=== PATIENT | male | born 1950 | race Caucasian/White ===

== ENCOUNTER 2019-01-01 18:40 | Emergency (ER) | payer MEDICARE, BC ==
--- NOTE | 2019-01-01 19:03 | EDM.PDOC ---
ED HPI GENERAL MEDICAL PROBLEM - General Chief Complaint: Flank Pain Stated Complaint: RIGHT SIDE AND BACK PAIN Time Seen by Provider: 01/01/19 19:01 Source of Information: Reports: Patient, Family (spouse) History Limitations: Reports: No Limitations - History of Present Illness INITIAL COMMENTS - FREE TEXT/NARRATIVE: 68-year-old male presents to the ED with a history of recurrent nausea and vomiting starting about 0200 hrs. this morning and then associated loose watery diarrhea. Intermittent fever and chills. About 3:00 this afternoon he developed sudden onset of severe right flank pain that radiates down towards the right groin. Patient has a history of renal lithiasis with at least 5 previous attacks. Lengthy period of time since he had his last kidney stone. Has not no cine blood in his urine states he hasn't really voided much at all today. Has not been able to keep anything down. Doesn't think that he came in contact with any bad food. No blood in either the emesis or the diarrhea stool. Diarrhea stools X4 of small volume. He does feel lightheaded and dizzy when standing. Onset: Today Onset Date: 01/01/19 Onset Time: 02:00 Duration: Hour(s): Location: Reports: Abdomen, Back (Current nausea vomiting and loose watery diarrhea. QT right flank pain starting bones 1500 hrs. today rating around the right lower abdomen towards the groin.) Quality: Reports: Ache, Other (Pain in the right flank is constant with intermittent colicky component. He has pain feeling across his entire lower abdomen.) Severity: Severe Improves with: Reports: None (910) Worsens with: Reports: None. Denies: Other Context: Denies: Activity, Exercise, Lifting, Sick Contact, Trauma, Other Associated Symptoms: Reports: Loss of Appetite, Malaise (Loose watery diarrhea) , Nausea/Vomiting, Other. Denies: Chest Pain, Cough, cough w sputum, Shortness of Breath, Syncope Treatments CLINICAL TRIAL COORDINATOR: Reports: Other (see below) (Nothing will stay down) Right Pain Score (Numeric/FACES): 9 - Related Data Allergies Allergy/AdvReac Type Severity Reaction Status Date / Time atorvastatin calcium Allergy Cannot Verified 01/01/19 18:56 [From Lipitor] Remember Penicillins Allergy Cannot Verified 01/01/19 18:56 Remember Home Meds: Home Meds Ondansetron [Zofran] 4 mg BUCCAL Q6H PRN #5 tab 01/01/19 [Rx] Simvastatin 10 mg PO DAILY 01/01/19 [History] amLODIPine Besylate [Amlodipine Besylate] 5 mg PO DAILY 01/01/19 [History] oxyCODONE HCl/Acetaminophen [Percocet 5-325 mg Tablet] 1 - 2 each PO Q4H PRN # 20 tablet 01/01/19 [Rx] Past Medical History HEENT History: Reports: Impaired Vision Cardiovascular History: Reports: High Cholesterol, Hypertension Genitourinary History: Reports: BPH, Renal Calculus (On multiple occasions he estimates 5 previous attacks of renal colic. No requirement for lithotripsy.) Hematologic History: Reports: Other (See Below) (Patient has polycythemia rubra vera and has phlebotomy done about once monthly. Just had it done last week.) - Past Surgical History GI Surgical History: Reports: Hernia, Inguinal (Bilateral inguinal hernia raphe) Social & Family History - Tobacco Use Smoking Status *Q: Never Smoker - Caffeine Use Caffeine Use: Reports: Soda - Recreational Drug Use Recreational Drug Use: No - Living Situation & Occupation Living situation: Reports: Occupation: Employed ED ROS GENERAL - Review of Systems Review Of Systems: See Below Constitutional: Reports: Fever, Chills, Malaise, Weakness, Fatigue, Decreased Appetite HEENT: Reports: Other Respiratory: Reports: No Symptoms (Dry mouth) Cardiovascular: Reports: Blood Pressure Problem Endocrine: Reports: No Symptoms GI/Abdominal: Reports: Abdominal Pain, Diarrhea, Nausea (This large-volume watery yellow diarrhea starting up until about 0300 hrs. this morning.), Vomiting (Starting about 0200 hrs. this morning.) : Reports: No Symptoms, Flank Pain (Right side), Other Musculoskeletal: Reports: Back Pain Skin: Reports: No Symptoms Neurological: Reports: No Symptoms Psychiatric: Reports: No Symptoms Hematologic/Lymphatic: Reports: No Symptoms Immunologic: Reports: No Symptoms ED EXAM, GI/ABD - Physical Exam Exam: See Below Exam Limited By: No Limitations General Appearance: Alert, WD/WN, No Apparent Distress Eyes: Bilateral: Normal Appearance (No scleral icterus.) Throat/Mouth: Other Head: Atraumatic, Normocephalic (Tongue is very dry and coated.) Neck: Normal Inspection, Supple, Non-Tender, Full Range of Motion Respiratory/Chest: No Respiratory Distress, Lungs Clear, Normal Breath Sounds, No Accessory Muscle Use Cardiovascular: Normal Peripheral Pulses, Regular Rate, Rhythm, No Edema, No Gallop, No Murmur, No Rub GI/Abdominal Exam: No Abnormal Bruit, No Mass, Pelvis Stable, Distended (I'll sounds are fairly quiet sent and all 4 quadrants. The abdomen is distended firm to palpation. Minimal tympany.), Abnormal Bowel Sounds, Other (Abdominal girth limits ability to elicit a palpate any solid organs.) (Male) Exam: Other (Surgical scars both lower inguinal areas compatible with hernia raphe's) Back Exam: Normal Inspection, Full Range of Motion. No: CVA Tenderness (L), CVA Tenderness (R) Extremities: Normal Inspection, Normal Range of Motion, Non-Tender, No Pedal Edema Neurological: Alert, Oriented, CN II-XII Intact, Normal Cognition, Normal Gait Psychiatric: Normal Affect, Normal Mood Skin Exam: Warm, Dry, Intact, Normal Color, No Rash Course - Vital Signs Last Recorded V/S: Last Vital Signs Temp 36.3 C 01/01/19 18:54 Pulse 81 01/01/19 18:54 Resp 18 01/01/19 18:54 BP 147/90 H 01/01/19 18:54 Pulse Ox 94 L 01/01/19 18:54 - Orders/Labs/Meds Orders: Active Orders 24 hr Category Date Time Status Sodium Chloride 0.9% [Normal Saline] 1,000 ml Med 01/01/19 19:15 Active IV ASDIRECTED Medication Orders Sodium Chloride (Normal Saline) 1,000 mls @ 500 mls/hr IV ASDIRECTED MISAEL Last Admin: 01/01/19 19:29 Dose: 500 mls/hr Labs: Laboratory Tests 01/01/19 01/01/19 01/01/19 Range/Units 19:25 19:25 19:25 WBC 13.80 H (4.23-9.07) K/mm3 RBC 6.64 H (4.63-6.08) M/mm3 Hgb 16.0 (13.7-17.5) gm/L Hct 50.6 (40.1-51.0) % MCV 76.2 L (79.0-92.2) fl MCH 24.1 L (25.7-32.2) pg MCHC 31.6 L (32.2-35.5) g/dl RDW Std Deviation 51.0 H (35.1-43.9) fL Plt Count 257 (163-337) K/mm3 MPV 10.6 (9.4-12.3) fl Neutrophils % (Manual) 80 H (40-60) % Band Neutrophils % 1 (0-10) % Lymphocytes % (Manual) 13 L (20-40) % Atypical Lymphs % 0 % Monocytes % (Manual) 5 (2-10) % Eosinophils % (Manual) 1 (0.8-7.0) % Basophils % (Manual) 0 L (0.2-1.2) Platelet Estimate Adequate Polychromasia Few Anisocytosis 1+ slight Microcytosis 1+ slight Sodium 140 (136-145) mEq/L Potassium 3.7 (3.5-5.1) mEq/L Chloride 103 (98-107) mEq/L Carbon Dioxide 23 (21-32) mEq/L Anion Gap 17.7 H (5-15) BUN 22 H (7-18) mg/dL Creatinine 1.0 (0.7-1.3) mg/dL Est Cr Clr Drug Dosing 72.66 mL/min Estimated GFR (MDRD) > 60 (>60) mL/min BUN/Creatinine Ratio 22.0 H (14-18) Glucose 157 H (80-115) mg/dL Lactic Acid 1.9 (0.4-2.0) mmol/L Calcium 9.3 (8.5-10.1) mg/dL Magnesium 2.0 (1.8-2.4) mg/dl Total Bilirubin 1.1 H (0.2-1.0) mg/dL AST 28 (15-37) U/L ALT 52 (16-63) U/L Alkaline Phosphatase 124 H (46-116) U/L C-Reactive Protein 0.7 (<1.0) mg/dL Total Protein 9.0 H (6.4-8.2) g/dl Albumin 4.0 (3.4-5.0) g/dl Globulin 5.0 gm/dL Albumin/Globulin Ratio 0.8 L (1-2) Lipase 94 (73-393) U/L Urine Color (Yellow) Urine Appearance (Clear) Urine pH (5.0-8.0) Ur Specific [place] (1.005-1.030) Urine Protein (Negative) Urine Glucose (UA) (Negative) Urine Ketones (Negative) Urine Occult Blood (Negative) Urine Nitrite (Negative) Urine Bilirubin (Negative) Urine Urobilinogen (0.2-1.0) Ur Leukocyte Esterase (Negative) Urine RBC (0-5) /hpf Urine WBC (0-5) /hpf Ur Epithelial Cells (0-5) /hpf Urine Bacteria (FEW) /hpf Urine Mucus (FEW) /hpf Ketones (0.0-0.3) mM 01/01/19 01/01/19 Range/Units 19:25 21:23 WBC (4.23-9.07) K/mm3 RBC (4.63-6.08) M/mm3 Hgb (13.7-17.5) gm/L Hct (40.1-51.0) % MCV (79.0-92.2) fl MCH (25.7-32.2) pg MCHC (32.2-35.5) g/dl RDW Std Deviation (35.1-43.9) fL Plt Count (163-337) K/mm3 MPV (9.4-12.3) fl Neutrophils % (Manual) (40-60) % Band Neutrophils % (0-10) % Lymphocytes % (Manual) (20-40) % Atypical Lymphs % % Monocytes % (Manual) (2-10) % Eosinophils % (Manual) (0.8-7.0) % Basophils % (Manual) (0.2-1.2) Platelet Estimate Polychromasia Anisocytosis Microcytosis Sodium (136-145) mEq/L Potassium (3.5-5.1) mEq/L Chloride (98-107) mEq/L Carbon Dioxide (21-32) mEq/L Anion Gap (5-15) BUN (7-18) mg/dL Creatinine (0.7-1.3) mg/dL Est Cr Clr Drug Dosing mL/min Estimated GFR (MDRD) (>60) mL/min BUN/Creatinine Ratio (14-18) Glucose (80-115) mg/dL Lactic Acid (0.4-2.0) mmol/L Calcium (8.5-10.1) mg/dL Magnesium (1.8-2.4) mg/dl Total Bilirubin (0.2-1.0) mg/dL AST (15-37) U/L ALT (16-63) U/L Alkaline Phosphatase (46-116) U/L C-Reactive Protein (<1.0) mg/dL Total Protein (6.4-8.2) g/dl Albumin (3.4-5.0) g/dl Globulin gm/dL Albumin/Globulin Ratio (1-2) Lipase (73-393) U/L Urine Color Mandy H (Yellow) Urine Appearance Slt cloudy H (Clear) Urine pH 5.5 (5.0-8.0) Ur Specific [place] > or = 1.030 (1.005-1.030) Urine Protein 2+ H (Negative) Urine Glucose (UA) Negative (Negative) Urine Ketones 2+ H (Negative) Urine Occult Blood 3+ H (Negative) Urine Nitrite Negative (Negative) Urine Bilirubin 1+ H (Negative) Urine Urobilinogen 0.2 (0.2-1.0) Ur Leukocyte Esterase Negative (Negative) Urine RBC >100 H (0-5) /hpf Urine WBC 0-5 (0-5) /hpf Ur Epithelial Cells 0-5 (0-5) /hpf Urine Bacteria Moderate H (FEW) /hpf Urine Mucus Moderate H (FEW) /hpf Ketones 0.55 (0.0-0.3) mM Meds: Medications Generic Name Dose Route Start Last Admin Trade Name Freq PRN Reason Stop Dose Admin Sodium Chloride 1,000 mls @ 500 mls/hr 01/01/19 19:15 01/01/19 19:29 Normal Saline IV 500 mls/hr ASDIRECTED MISAEL Administration Discontinued Medications Generic Name Dose Route Start Last Admin Trade Name Freq PRN Reason Stop Dose Admin Fentanyl 50 mcg 01/01/19 21:18 01/01/19 21:32 Sublimaze IVPUSH 01/01/19 21:19 50 mcg ONETIME ONE Administration Hydromorphone HCl 1 mg 01/01/19 19:02 01/01/19 19:28 Dilaudid IVPUSH 01/01/19 19:03 1 mg ONETIME ONE Administration Hydromorphone HCl 0.5 mg 01/01/19 20:21 01/01/19 20:33 Dilaudid IVPUSH 01/01/19 20:22 0.5 mg ONETIME ONE Administration Hydromorphone HCl 1 mg 01/01/19 22:12 01/01/19 22:19 Dilaudid IVPUSH 01/01/19 22:13 1 mg ONETIME ONE Administration Metoclopramide HCl 10 mg 01/01/19 19:02 01/01/19 19:27 Reglan IVPUSH 01/01/19 19:03 10 mg ONETIME ONE Administration Ondansetron HCl 4 mg 01/01/19 20:21 01/01/19 20:33 Zofran IVPUSH 01/01/19 20:22 4 mg ONETIME ONE Administration - Radiology Interpretation Free Text/Narrative:: 68-year-old male presents to the ED with 2 problems. He woke around 0200 hrs. this morning with spontaneous nausea vomiting and diarrhea's occur shortly thereafter. States he's had this about every 2 hours all day long. About 1500 hrs. today he developed sudden onset of severe right flank pain which she rates as 9 out of 10. It radiates down towards the right groin. Patient has a history of renal lithiasis with 5 previous attacks of renal colic. He does not have it ever had to have lithotripsy. Diarrhea as loose watery and high-volume . Emesis is more dry heaves at this time. Nothing his stay down all day. He has had minimal fluid output per urethra. - Re-Assessments/Exams Free Text/Narrative Re-Assessment/Exam: 01/01/19 20:00: CT of the abdomen has been completed per renal protocol. Visualized portions of the lower chest reveal increased density within both lung bases with multiple subpleural labs and slight parenchymal density most likely due to his areas of scarring. Fatty infiltration is seen throughout the liver. Spleen is normal small to moderate-sized hiatal hernia appreciated. Adrenal glands show no nodules. Kidneys are moderately atrophic bilaterally and cysts are noted within both kidneys. No abnormal calcifications are seen within the kidneys. Ureters do not show any significant dilatation although there is a 2-3 mm stone in the midportion of the right ureter pancreas is within normal limits. Gallbladder contains no calcified stones. Aorta shows atherosclerotic changes which continues into the iliac vessels. Mild areas of ectasia are seen within the aorta with minimal aneurysmal dilatation at 2.5 cm. 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 Diverticular appreciated throughout the descending and sigmoid colon without active diverticulitis. No free fluid or inflammatory changes are appreciated in the pelvis. Appendix is not visualized. Bone windows show moderate degenerative changes throughout the lumbar spine. 01/01/19 20:20 on recheck the patient still is having moderate pain right flank rated 2 out of 10. Still also mildly nauseated and hanging onto the emesis bag. He did have a small emesis while over in the CT suite. Given Zofran 4 mg IV and repeat Dilaudid 0.5 mg IV. Labs are still pending. 01/01/19 20:32 Chemistry is back. Hematology is pending. Sodium 140 with potassium 3.7. Chloride 103 with a bicarbonate 23. And a gap is elevated at 17.7. BUNs 22 with a creatinine of 1.0. GFR remains greater than 60. Glucose mildly elevated at 157. Lactic acid is 1.9. Calcium is 9.3. Magnesium normal at 2.0. Bilirubin is 1.1. AST is 28 with an ALT of 52. Alk phosphatase is 124. C- reactive protein is 0.7. Lipase is normal at 94. Ketones are elevated at 0.55. 01/01/19 21:06 White count is elevated at 13.80 with 80% neutrophils and 1% bands. Hemoglobin is 16.0 with hematocrit of 50.6 suggesting some degree of hemoconcentration. MCV is slightly low at 76.2 suggesting some degree of iron deficiency. Platelet count is normal at 2 57,000. 01/01/19 21:19 patient still has not voided. Still having significant right lower quadrant abdominal pain the distribution of the kidney stone. We'll try fentanyl 50 g IV. 01/01/19 22:11 Urine dip reveals specific gravity greater than 1.030. 2+ proteinuria negative glucose 2+ ketones and 3+ occult blood. 1+ bilirubin. The micro-shows greater than 100 red blood cells per high-power field negative leukocyte esterase moderate bacteria. Departure - Departure Time of Disposition: 22:22 Disposition: Home, Self-Care 01 Condition: Fair Clinical Impression: Viral gastroenteritis, Renal colic on right side Intractable nausea and vomiting Qualifiers: Vomiting type: unspecified Qualified Code(s): R11.2 - Nausea with vomiting, unspecified - Discharge Information *PRESCRIPTION DRUG MONITORING PROGRAM REVIEWED*: Not Applicable *COPY OF PRESCRIPTION DRUG MONITORING REPORT IN PATIENT SHE: Not Applicable Prescriptions: Ondansetron [Zofran] 4 mg BUCCAL Q6H PRN #5 tab PRN Reason: nausea or vomiting oxyCODONE HCl/Acetaminophen [Percocet 5-325 mg Tablet] 1 - 2 each PO Q4H PRN # 20 tablet PRN Reason: pain relief. Instructions: Viral Gastroenteritis, Adult, Kidney Stones, [id number], Nausea and Vomiting, Adult Referrals: Saadia Jay MD [Primary Care Provider] - Forms: ED Department Discharge Additional Instructions: Evaluation in he emergency room today due to viral gastroenteritis with nausea vomiting and diarrhea since point 0200 hrs. this morning. Compounded by the development of acute right-sided flank pain rating down to the right groin at about [address] of the abdomen confirms a 2.5 mm stone in the mid right ureter. No other stones are identified in the kidney tissues at this time. Stone is small enough that it'll pass likely over the next 2-3 days. Lab work revealed that she were dehydrated and she will given a liter of IV fluids while in the ED. Also medications are given for nausea vomiting and of course pain relief. Treatment at home is Zofran 4 mg under the tongue every 4-6 hours necessary for relief of further nausea or vomiting. Percocet tabs 5/3/25 usually 2 tablets every 4 hours as necessary for relief of renal colic pain until stone passes. Diet to be clear fluids such as Gatorade/Powerade ideally 5- 6 ounces sipped per hour. Advance diet as tolerated over the next 2 days. Suggest no dairy products and no apple juice or grape juice until stools are formed back up. - My Orders Last 24 Hours: My Active Orders 01/01/19 19:15 Sodium Chloride 0.9% [Normal Saline] 1,000 ml IV ASDIRECTED - Assessment/Plan Last 24 Hours: My Active Orders 01/01/19 19:15 Sodium Chloride 0.9% [Normal Saline] 1,000 ml IV ASDIRECTED
[2019-01-01] MEDS: Metoclopramide 10 MG/2 ML SDV IVPUSH ONE (19:27)
[2019-01-01] MEDS: HYDROmorphone 1 MG/ML Syringe IVPUSH ONE ×3 (19:28→22:19)
[2019-01-01] MEDS: Sodium Chloride 0.9% 1,000 ML IV SCH (19:29)
--- NOTE | 2019-01-01 20:12 | CT ---
CT abdomen and pelvis Technique: Multiple axial sections were obtained from above the dome of the diaphragm inferiorly through the pubic symphysis. Intravenous and oral contrast not utilized. Study has been performed as a ureteral stone protocol. Comparison: Previous CT abdomen and pelvis exam of 06/28/12. Findings: Increased density is noted within both lung bases with multiple subpleural blebs and slight parenchymal density most likely due to areas of scarring. These findings are an interval change from previous exam. Fatty infiltration is seen throughout the liver. Spleen appears within normal limits in size. Small hiatal hernia is noted. Adrenal glands show no nodule. Cysts are noted within both kidneys. No abnormal calcifications are seen within the kidneys. Ureters show no dilatation. Small calcification is noted within the mid ureter measuring 3 mm which causes no obstruction at this time. Pancreas is within normal limits. Gallbladder contains no calcified gallstones. Aorta shows atherosclerotic change which continues into the iliac vessels. Mild areas of ectasia are seen within the aorta with minimal aneurysmal dilatation at 2.5 cm. 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 Diverticuli are seen within the descending and sigmoid colon without diverticulitis. No pelvic mass or adenopathy is seen. No free fluid or inflammatory change is seen. Appendix not definitely visualized. Bone window settings were reviewed which appears within normal limits for the patient's age. Impression: 1. Fatty infiltration within the liver. Small hiatal hernia. Cysts within the kidneys. 2. No renal calculi or ureteral dilatation is seen. Small 3 mm calcification within the mid right ureter is seen compatible with ureteral stone which causes no significant obstruction at this time. 3. Other nonacute findings as described above. Diagnostic code #3
[2019-01-01] MEDS: Ondansetron 4 MG/2 ML SDV IVPUSH ONE (20:33)
[2019-01-01] MEDS: fentaNYL 100 MCG/2 ML SDV IVPUSH ONE (21:32)
== END 2019-01-01 22:58 | disposition home or self-care (01) ==
LOC: JD.ED 18:40
DX: A08.4 Viral intestinal infection, unspecified (principal); N23 Unspecified renal colic; I10 Essential (primary) hypertension; Z88.0 Allergy status to penicillin
CPT/HCPCS: 36415; 74176; 80053; 81001; 82009; 83605; 83690; 83735; 85007; 85027; 86140; 96361; 96374; 96375; 96376; 99284; J1170; J2405; J2765; J3010; J7040

== ENCOUNTER 2019-11-13 01:50 | Emergency (ER) | payer MEDICARE, BC ==
--- NOTE | 2019-11-13 03:26 | EDM.PDOC ---
ED HPI GENERAL MEDICAL PROBLEM - General Chief Complaint: Lower Extremity Injury/Pain Stated Complaint: FOOT INJURY Time Seen by Provider: 11/13/19 03:06 Source of Information: Reports: Patient, Family () History Limitations: Reports: No Limitations - History of Present Illness INITIAL COMMENTS - FREE TEXT/NARRATIVE: Mr. Gregg is a very pleasant 69-year-old man with past medical history significant for polycythemia rubra vera, who states that he missed a step while walking downstairs around midnight, causing him to twist his right foot inward and partially fall, although he was able to catch himself on the handrails. He had immediate pain to the lateral aspect of his right ankle. He states that the pain is much greater when he is bearing weight, and much improved and puts his foot up. No prior injury to his right foot/ankle, and the patient is otherwise uninjured. The patient's PCP is Dr. Saadia Jay. His Pure Culture Operator is Dr. Jonnie Sotelo. His ENT is Dr. Wally Bauman. The patient did receive an influenza vaccine this season. Right Ankle Pain Score (Numeric/FACES): 5 - Related Data Allergies Allergy/AdvReac Type Severity Reaction Status Date / Time atorvastatin calcium Allergy Cannot Verified 11/13/19 02:07 [From Lipitor] Remember Penicillins Allergy Cannot Verified 11/13/19 02:07 Remember Home Meds: Home Meds Simvastatin 10 mg PO DAILY 01/01/19 [History] amLODIPine Besylate [Amlodipine Besylate] 5 mg PO DAILY 01/01/19 [History] Aspirin 81 mg PO DAILY 11/13/19 [History] Dorzolamide HCl/Timolol Maleat [Dorzolamide-Timolol Eye Drops] 1 drop EYEBOTH BID 11/13/19 [History] Esomeprazole Magnesium [Nexium] 2.5 mg PO BID 11/13/19 [History] Fish Oil/[place]-3 Fatty Acids [Fish Oil 1,000 MG] 1 tab PO DAILY 11/13/19 [ History] Garlic [Garlique] 1,000 mcg PO DAILY 11/13/19 [History] Phenylephrine HCl [Suphedrine PE] 10 mg PO DAILY PRN 11/13/19 [History] Simethicone [Gas Relief] 125 mg PO DAILY 11/13/19 [History] Tamsulosin [Flomax] 0.4 mg PO DAILY 11/13/19 [History] Timolol/Brimonidin/Dorzolam/Pf [Timol 0.5%-Brim 0.15%-Dorzo 2%] 1 drop EYEBOTH BID 11/13/19 [History] Past Medical History HEENT History: Reports: Impaired Vision Cardiovascular History: Reports: High Cholesterol, Hypertension Genitourinary History: Reports: BPH, Renal Calculus Hematologic History: Reports: Other (See Below) (Polycythemia rubra vera -> monthly phlebotomy) - Past Surgical History HEENT Surgical History: Reports: Naso-Sinus Surgery (deviated septum) GI Surgical History: Reports: Hernia, Inguinal (bilateral) Musculoskeletal Surgical History: Reports: ORIF (leftt clavicle) Social & Family History - Tobacco Use Smoking Status *Q: Former Smoker Years of Tobacco use: 30 Packs/Tins Daily: 2 Month/Year Tobacco Last Used: Quit 1999 - Caffeine Use Caffeine Use: Reports: Soda - Alcohol Use Alcohol Use History: Yes Alcohol Use Frequency: Socially - Recreational Drug Use Recreational Drug Use: No - Living Situation & Occupation Living situation: Reports: , with Spouse 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 ED EXAM, GENERAL - Physical Exam Exam: See Below Exam Limited By: No Limitations General Appearance: Alert, WD/WN, No Apparent Distress Extremities: Other (There is swelling and subtle ecchymosis around the lateral malleolus of the right ankle. There is tenderness, primarily to the superior/ anterior aspect of the lateral malleolus. No tenderness to the anterior or posterior syndesmoses, and no tenderness to the medial malleolus. There is pain in the ankle with attempts at range of motion. Good dorsalis pedis and posterior tibialis pulses, and normal sensation to the foot.) Course - Vital Signs Last Recorded V/S: Last Vital Signs Temp 36.3 C 11/13/19 02:04 Pulse 68 11/13/19 02:04 Resp 16 11/13/19 02:04 BP 144/79 H 11/13/19 02:04 Pulse Ox 100 11/13/19 02:04 - Re-Assessments/Exams Free Text/Narrative Re-Assessment/Exam: 11/13/19 03:14 X-rays of the right tibia/fibula and right foot were ordered by the patient's nurse. 4-view radiographs of the right tibia/fibula appear to be grossly normal. No fractures or dislocations identified. Formal read per the Radiologist pending. 3-view radiographs of the right foot appear to be grossly normal. No fractures or dislocations identified. Formal read per the Radiologist pending. 11/13/19 03:32 X-ray results discussed with the patient and his . The patient appears to have a grade 1 sprain of his lateral ankle. He should ice and elevate his ankle as much as possible over the next 2 days, to help minimize swelling. He can take [id number] ibuprofen as needed for discomfort. He will be fitted with a stirrup Aircast that I would like him to wear for about a week, after which he can gradually increase his ankle range of motion as tolerated. I will refer him to Ortho in the event that his ankle fails to improve as expected. Departure - Departure Time of Disposition: 03:34 Disposition: Home, Self-Care 01 Condition: Good Clinical Impression: Right ankle sprain - Discharge Information *PRESCRIPTION DRUG MONITORING PROGRAM REVIEWED*: Not Applicable *COPY OF PRESCRIPTION DRUG MONITORING REPORT IN PATIENT SHE: Not Applicable Instructions: Ankle Sprain Referrals: Saadia Jay MD [Primary Care Provider] - Wally Bauman MD [Ordering Only Provider] - Jonnie Sotelo MD [Ordering Only Provider] - Carlos Puga MD [Physician] - Forms: ED Department Discharge Additional Instructions: You were seen in the emergency room after injuring your right ankle when missing a step while going downstairs tonight. Workup in the ER included x-rays of your right tibia/fibula and right foot. All of your x-rays were normal. No broken bones or dislocations were found. Based on your history, physical examination, and ER x-rays, you have most likely sprained your right ankle. We recommend that you ice and elevate your right ankle as much as possible over the next 2 days, to help minimize swelling. We recommend that you take [id number] ibuprofen as needed for discomfort. You have been fitted with a stirrup Aircast. Put it on in the morning and take it off at night. Wear it for about a week, after which you should gradually increase the range of motion of your ankle, as tolerated. If you are still having considerable pain to your ankle after 2 weeks, please follow-up with the Orthopedic Surgeon Dr. Carlos Puga. If any other problems, please do not hesitate to return to the ER. Sepsis Event Note - Evaluation Sepsis Screening Result: No Definite Risk - Focused Exam Date Exam was Performed: 11/14/19 Time Exam was Performed: 18:51
--- NOTE | 2019-11-13 11:49 | CR ---
Right foot: 3 views of the right foot were obtained. Comparison: No prior foot exam. Calcifications are seen within the distal Achilles tendon at the attachment to the calcaneus. No fracture, dislocation or other bony abnormality is appreciated. Impression: 1. Findings which are believed to be incidental as described above. 2. Nothing acute is appreciated on right foot exam. Diagnostic code #2 This report was dictated in [place] Standard Time
--- NOTE | 2019-11-13 11:49 | CR ---
Right tibia and fibula: AP and lateral views of the right tibia and fibula were obtained. Comparison: No prior tibia or fibula exam. Calcifications are seen within the proximal patellar ligament at the attachment to the patella. Minimal calcification is noted within the soft tissues posterior to the upper fibula believed to represent dystrophic calcification and is chronic. Calcifications are seen off the posterior calcaneus within the distal Achilles tendon. Soft tissue swelling is noted. No acute fracture or other abnormality is appreciated. Impression: 1. Soft tissue swelling. 2. Other findings believed to be incidental. 3. No acute bony abnormality is appreciated on right tibia and fibula exam. Diagnostic code #2 This report was dictated in [place] Standard Time
== END 2019-11-13 03:44 | disposition home or self-care (01) ==
LOC: JD.ED 01:50
DX: S93.401A Sprain of unspecified ligament of right ankle, initial encounter (principal); I10 Essential (primary) hypertension; E78.00 Pure hypercholesterolemia, unspecified; Z88.0 Allergy status to penicillin; Z88.8 Allergy status to other drugs, medicaments and biological substances; Z79.82 Long term (current) use of aspirin; Z79.899 Other long term (current) drug therapy; Z87.891 Personal history of nicotine dependence; W10.9XXA Fall (on) (from) unspecified stairs and steps, initial encounter
CPT/HCPCS: 73590-26-RT; 73590-RT; 73620-26-RT; 73620-RT; 99283-25

== ENCOUNTER 2020-09-13 15:48 | Emergency (ER) | payer MEDICARE, BC ==
[2020-09-13] MEDS ORDERED: Sodium Chloride 0.9% 10 ML Syringe FLUSH PRN (16:40)
[2020-09-13] MEDS ORDERED: Ketorolac 30 MG/ML SDV IVPUSH ONE (16:40)
[2020-09-13] MEDS ORDERED: Sodium Chloride 0.9% 1,000 ML IV STA (16:42)
[2020-09-13] MEDS ORDERED: Ondansetron 4 MG/2 ML SDV IVPUSH ONE (16:42)
--- NOTE | 2020-09-13 17:47 | EDM.PDOC ---
ED HPI GENERAL MEDICAL PROBLEM - General Chief Complaint: Flank Pain Stated Complaint: KIDNEY STONE Time Seen by Provider: 09/13/20 16:06 Source of Information: Reports: Patient, RN Notes Reviewed History Limitations: Reports: No Limitations - History of Present Illness INITIAL COMMENTS - FREE TEXT/NARRATIVE: Patient is a 69-year-old male presenting to the emergency department with complaints of right-sided flank pain radiating into his groin. Symptoms began earlier today. At the time of onset, he rated pain 10 out of 10 with accompanying nausea and vomiting. He took Tylenol and pain has improved. Currently rates about 6 out of 10. He does have a history of kidney stones and states this feels similar to that. He denies any fever or chills. Right Flank Pain Score (Numeric/FACES): 6 - Related Data Allergies Allergy/AdvReac Type Severity Reaction Status Date / Time atorvastatin calcium Allergy Cannot Verified 09/13/20 16:07 [From Lipitor] Remember Penicillins Allergy Cannot Verified 09/13/20 16:07 Remember Home Meds: Home Meds Simvastatin 10 mg PO DAILY 01/01/19 [History] amLODIPine Besylate [Amlodipine Besylate] 5 mg PO DAILY 01/01/19 [History] Aspirin 81 mg PO DAILY 11/13/19 [History] Dorzolamide HCl/Timolol Maleat [Dorzolamide-Timolol Eye Drops] 1 drop EYEBOTH BID 11/13/19 [History] Esomeprazole Magnesium [Nexium] 2.5 mg PO BID 11/13/19 [History] Fish Oil/[place]-3 Fatty Acids [Fish Oil 1,000 MG] 1 tab PO DAILY 11/13/19 [History] Garlic [Garlique] 1,000 mcg PO DAILY 11/13/19 [History] Phenylephrine HCl [Suphedrine PE] 10 mg PO DAILY PRN 11/13/19 [History] Simethicone [Gas Relief] 125 mg PO DAILY 11/13/19 [History] Tamsulosin [Flomax] 0.4 mg PO DAILY 11/13/19 [History] Timolol/Brimonidin/Dorzolam/Pf [Timol 0.5%-Brim 0.15%-Dorzo 2%] 1 drop EYEBOTH BID 11/13/19 [History] Past Medical History HEENT History: Reports: Impaired Vision Cardiovascular History: Reports: High Cholesterol, Hypertension Genitourinary History: Reports: BPH, Renal Calculus Hematologic History: Reports: Other (See Below) - Past Surgical History HEENT Surgical History: Reports: Naso-Sinus Surgery GI Surgical History: Reports: Hernia, Inguinal Musculoskeletal Surgical History: Reports: ORIF Social & Family History - Tobacco Use Tobacco Use Status *Q: Former Tobacco User Used Tobacco, but Quit: Yes Month/Year Tobacco Last Used: 20 years ago - Caffeine Use Caffeine Use: Reports: None - Recreational Drug Use Recreational Drug Use: No - Living Situation & Occupation Living situation: Reports: , with Spouse 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 Denies: Fever, Chills, Weakness HEENT: Reports: No Symptoms Respiratory: Reports: No Symptoms Cardiovascular: Reports: No Symptoms Endocrine: Reports: No Symptoms GI/Abdominal: Reports: Nausea, Vomiting. Denies: Abdominal Pain : Reports: Flank Pain Musculoskeletal: Reports: No Symptoms Skin: Reports: No Symptoms Neurological: Reports: No Symptoms Psychiatric: Reports: No Symptoms Hematologic/Lymphatic: Reports: No Symptoms Immunologic: Reports: No Symptoms ED EXAM, RENAL/ - Physical Exam Exam: See Below General Appearance: Alert, WD/WN, No Apparent Distress Respiratory/Chest: No Respiratory Distress, Lungs Clear, Normal Breath Sounds, No Accessory Muscle Use, Chest Non-Tender Cardiovascular: Normal Peripheral Pulses, Regular Rate, Rhythm, No Edema, No Gallop, No JVD, No Murmur, No Rub GI/Abdominal: Normal Bowel Sounds, Soft, Non-Tender, No Organomegaly, No Distention, No Abnormal Bruit, No Mass Back Exam: Normal Inspection, Full Range of Motion, CVA Tenderness (R) (Mild) Neurological: Alert, Oriented, CN II-XII Intact, Normal Cognition, Normal Gait, Normal Reflexes, No Motor/Sensory Deficits Psychiatric: Normal Affect, Normal Mood Skin Exam: Warm, Dry, Intact, Normal Color, No Rash Course - Vital Signs Last Recorded V/S: Last Vital Signs Temp 97.1 F 09/13/20 16:04 Pulse 74 09/13/20 16:04 Resp 16 09/13/20 16:04 BP 152/83 H 09/13/20 16:04 Pulse Ox 95 09/13/20 16:04 - Orders/Labs/Meds Orders: Active Orders 24 hr Category Date Time Status Peripheral IV Care [RC] . DIRECTED Care 09/13/20 16:41 Active Abdomen Pelvis wo Cont [CT] Stat Exams 09/13/20 16:40 Taken Sodium Chloride 0.9% [Normal Saline] 1,000 ml Med 09/13/20 16:42 Active IV NOW Sodium Chloride 0.9% [Saline Flush] Med 09/13/20 16:40 Active 10 ml FLUSH ASDIRECTED PRN Peripheral IV Insertion Adult [OM.PC] Stat Oth 09/13/20 16:40 Ordered Medication Orders Sodium Chloride (Normal Saline) 1,000 mls @ 150 mls/hr IV NOW STA Stop: 09/13/20 23:21 Last Admin: 09/13/20 16:57 Dose: 150 mls/hr Documented by: VIRY Sodium Chloride (Saline Flush) 10 ml FLUSH ASDIRECTED PRN PRN Reason: Keep Vein Open Last Admin: 09/13/20 16:57 Dose: 10 ml Documented by: VIRY Labs: Laboratory Tests 09/13/20 09/13/20 09/13/20 Range/Units 17:00 17:00 17:49 WBC 10.47 H (4.23-9.07) K/mm3 RBC 5.99 (4.63-6.08) M/mm3 Hgb 15.6 (13.7-17.5) gm/dl Hct 48.4 (40.1-51.0) % MCV 80.8 D (79.0-92.2) fl MCH 26.0 (25.7-32.2) pg MCHC 32.2 (32.2-35.5) g/dl RDW Std Deviation 49.6 H (35.1-43.9) fL Plt Count 258 (163-337) K/mm3 MPV 10.2 (9.4-12.3) fl Neut % (Auto) 79.9 H (34.0-67.9) % Lymph % (Auto) 14.0 L (21.8-53.1) % [place] % (Auto) 5.7 (5.3-12.2) % Eos % (Auto) 0.1 L (0.8-7.0) Baso % (Auto) 0.2 (0.1-1.2) % Neut # (Auto) 8.36 H (1.78-5.38) K/mm3 Lymph # (Auto) 1.47 (1.32-3.57) K/mm3 [place] # (Auto) 0.60 (0.30-0.82) K/mm3 Eos # (Auto) 0.01 L (0.04-0.54) K/mm3 Baso # (Auto) 0.02 (0.01-0.08) K/mm3 Sodium 139 (136-145) mEq/L Potassium 4.2 (3.5-5.1) mEq/L Chloride 104 (98-107) mEq/L Carbon Dioxide 24 (21-32) mEq/L Anion Gap 15.2 H (5-15) BUN 17 (7-18) mg/dL Creatinine 0.9 (0.7-1.3) mg/dL Est Cr Clr Drug Dosing 79.65 mL/min Estimated GFR (MDRD) > 60 (>60) mL/min BUN/Creatinine Ratio 18.9 H (14-18) Glucose 158 H (80-115) mg/dL Calcium 9.1 (8.5-10.1) mg/dL Total Bilirubin 0.7 (0.2-1.0) mg/dL AST 20 (15-37) U/L ALT 47 (16-63) U/L Alkaline Phosphatase 99 (46-116) U/L C-Reactive Protein 0.5 (<1.0) mg/dL Total Protein 7.8 (6.4-8.2) g/dl Albumin 3.7 (3.4-5.0) g/dl Globulin 4.1 gm/dL Albumin/Globulin Ratio 0.9 L (1-2) Urine Color Yellow (Yellow) Urine Appearance Clear (Clear) Urine pH 6.5 (5.0-8.0) Ur Specific [place] 1.025 (1.005-1.030) Urine Protein 1+ H (Negative) Urine Glucose (UA) Negative (Negative) Urine Ketones Trace H (Negative) Urine Occult Blood 2+ H (Negative) Urine Nitrite Negative (Negative) Urine Bilirubin Negative (Negative) Urine Urobilinogen 0.2 (0.2-1.0) Ur Leukocyte Esterase Negative (Negative) Urine RBC 50-75 H (0-5) /hpf Urine WBC 0-5 (0-5) /hpf Ur Epithelial Cells 0-5 (0-5) /hpf Urine Bacteria Few (FEW) /hpf Urine Mucus Many H (FEW) /hpf Meds: Medications Generic Name Dose Route Start Last Admin Trade Name Freq PRN Reason Stop Dose Admin Sodium Chloride 1,000 mls @ 150 mls/hr 09/13/20 16:42 09/13/20 16:57 Normal Saline IV 09/13/20 23:21 150 mls/hr NOW STA Administration Sodium Chloride 10 ml 09/13/20 16:40 09/13/20 16:57 Saline Flush FLUSH 10 ml ASDIRECTED PRN Administration Keep Vein Open Discontinued Medications Generic Name Dose Route Start Last Admin Trade Name Freq PRN Reason Stop Dose Admin Ketorolac Tromethamine 30 mg 09/13/20 16:40 09/13/20 16:57 Toradol IVPUSH 09/13/20 16:41 30 mg ONETIME ONE Administration Ondansetron HCl 4 mg 09/13/20 16:42 09/13/20 16:57 Zofran IVPUSH 09/13/20 16:43 4 mg ONETIME ONE Administration - Re-Assessments/Exams Free Text/Narrative Re-Assessment/Exam: 09/13/20 18:26 Hematology was grossly unremarkable. Urinalysis showed 2+ occult blood and 50- [address] scan of the abdomen pelvis impression as follows: 1. Moderate right hydronephrosis and proximal hydroureter with a 4 mm mid right ureteral stone. There are 2 nonobstructive right renal stones present. 3. 6 mm noncalcified pulmonary nodule in the left lung base is unchanged from 01/01/2019. Please see continued follow-up recommendations above. 4. Fatty liver. 5. Small hiatal hernia 6. 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 No further imaging evaluation is required. 7. Moderate diverticulosis without evidence of diverticulitis. 8. Short segment mild aneurysmal dilatation of the mid abdominal aortic segment measuring 3.2 cm maximum diameter, slightly increased in size from 2019. 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 No evidence of rupture. 9. Additional nonemergent findings detailed above. Patient is aware of his history of abdominal aortic aneurysm and this is monitored by Dr. Bower. He will be provided a copy of the CT report today so that he may get back to Dr. Bower. Discussed that if he would like the images sent to him he can request these. Patient still has Flomax at home. He will start taking this daily. He also has a urine strainer at home and [place] for pain from previous kidney stone. He states this about 6 months old. I will provide him with a [facility] prescription for Zofran. Recommend that he strain his urine until he passes the stone. If he has not captured the stone within a week or 2, follow-up with his primary care provider. Return to the ER as needed. Discharge instructions as documented. Departure - Departure Time of Disposition: 18:26 Disposition: Home, Self-Care 01 Condition: Good Clinical Impression: Kidney stone - Discharge Information *PRESCRIPTION DRUG MONITORING PROGRAM REVIEWED*: No *COPY OF PRESCRIPTION DRUG MONITORING REPORT IN PATIENT SHE: No Instructions: Kidney Stones, [id number] Referrals: Saadia Jay MD [Primary Care Provider] - Forms: ED Department Discharge Additional Instructions: You were seen in the emergency department today for an acute onset of right- sided flank pain with nausea and vomiting. Your work-up included blood work, urinalysis, and a CT scan of your abdomen and pelvis. Results of your work-up are consistent with a diagnosis of a right-sided kidney stone. CT scan showed a 4 mm stone in your right ureter. Recommend that you start taking Flomax daily. Recommend Tylenol routinely. For pain not relieved by this, you may take one of the pain medications you have left at home. You provided with a prescription for Zofran. Use this as needed for nausea and vomiting. Recommend that you strain your urine each time you go. If you do not capture the stone within the next week or 2 and you continue to have pain, recommend follow-up with your primary care provider. Return to ER as needed. You have been provided with a copy of your CT scan report which details the measurements of your aneurysms. Recommend contacting Dr. Bower's office and provide him with the copy. If he would like to request these images from the CT scan, he can contact us to have them sent to his office. Sepsis Event Note (ED) - Evaluation Sepsis Screening Result: No Definite Risk - Focused Exam Vital Signs: Vital Signs Temp Pulse Resp BP Pulse Ox 09/13/20 16:04 97.1 F 74 16 152/83 H 95 - My Orders Last 24 Hours: My Active Orders 09/13/20 16:40 Abdomen Pelvis wo Cont [CT] Stat Sodium Chloride 0.9% [Saline Flush] 10 ml FLUSH ASDIRECTED PRN Peripheral IV Insertion Adult [OM.PC] Stat 09/13/20 16:41 Peripheral IV Care [RC] . DIRECTED 09/13/20 16:42 Sodium Chloride 0.9% [Normal Saline] 1,000 ml IV NOW - Assessment/Plan Last 24 Hours: My Active Orders 09/13/20 16:40 Abdomen Pelvis wo Cont [CT] Stat Sodium Chloride 0.9% [Saline Flush] 10 ml FLUSH ASDIRECTED PRN Peripheral IV Insertion Adult [OM.PC] Stat 09/13/20 16:41 Peripheral IV Care [RC] . DIRECTED 09/13/20 16:42 Sodium Chloride 0.9% [Normal Saline] 1,000 ml IV NOW
--- NOTE | 2020-09-17 13:29 | CT ---
"PROCEDURE INFORMATION: Exam: CT Abdomen And Pelvis Without Contrast Exam date and time: 09/13/2020 4:39 PM Age: 69 years old Clinical indication: Abdominal pain; Patient HX: RT flank pain historyof renal stones; Additional info: Prior report in images sent today TECHNIQUE: Imaging protocol: Computed tomography of the abdomen and pelvis without contrast. Radiation optimization: All CT scans at this facility use at least one of these dose optimization techniques: automated exposure control; mA and/or kV adjustment per patient size (includes targeted exams where dose is matched to clinical indication); or iterative reconstruction. COMPARISON: CT Abdomen Pelvis wo Cont 01/01/2019 7:34 PM FINDINGS: Lungs: A 6 mm noncalcified pulmonary nodule in the left lung base is unchanged from 01/01/2019. For patients at low risk (minimal or absent history of smoking and of other known risk factors), consider CT at 18-24 months from prior scan. For patients at high risk (history of smoking or of other known risk factors), recommend CT at 18-24 months from prior scan. (Bina et al., [employer] Society, 2017). Heart: Heart size normal. Mediastinal space: Small hiatal hernia. The visualized distal esophagus and stomach are otherwise unremarkable. Liver: Normal size and contour. No mass lesions. No intrahepatic biliary ductal dilatation. Moderate fatty infiltration of the liver. Mild fatty sparing around the gallbladder fossa . Gallbladder and bile ducts: The gallbladder is partially contracted but otherwise unremarkable. Nondilated biliary system. Pancreas: No acute pancreatic abnormalities. No ductal dilatation or signs of pancreatitis. Spleen: Normal. No splenomegaly. CHACHA MERRITTALD | Final Radiology Report CONFIDENTIALITY STATEMENT This report is intended only for use by the referring physician, and only in accordance with law. If you received this in error, call [phone]. Page 2 of 2 Adrenals: 1.9 x 1.2 cm nodule in the right adrenal gland demonstrating mature fat content consistent with adrenal myelolipoma, unchanged. No further imaging evaluation is required. Left adrenal gland is normal. Kidneys and ureters: Mild bilateral symmetrical perinephric stranding, nonspecific. This is unchanged and may relate to chronic perirenal scarring. Mild right hydronephrosis and hydroureter with a 4 mm stone in the mid right ureteral distribution at the L5 level. There are 2 nonobstructive right renal stones measuring 2 mm each. There are bilateral simple renal cortical cysts present. No further imaging evaluation is required. Stomach and bowel: The small bowel is normal with no evidence of obstruction. No acute colonic abnormalities. Moderate diverticulosis involving the distal colon without evidence of acute diverticulitis. Appendix: The appendix is normal in caliber and demonstrates no evidence of appendicitis. Intraperitoneal space: No free fluid or air. 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 Lymph nodes: No adenopathy. Urinary bladder: No acute findings. Reproductive: Mild prostate enlargement with mild elevation of the bladder floor. Bones/joints: No acute osseous abnormalities. Soft tissues: Very small fatty umbilical hernia and small fatty left inguinal hernia. No evidence of associated bowel herniation or bowel obstruction. Other findings: Mild-moderate fibrocystic changes in the posterior lower lobes bilaterally, unchanged. IMPRESSION: 1. Moderate right hydronephrosis and proximal hydroureter with a 4 mm mid right ureteral stone. 2. There are 2 nonobstructive right renal stones present. 3. 6 mm noncalcified pulmonary nodule in the left lung base is unchanged from 01/01/2019. Please see continued follow-up recommendations above. 4. Fatty liver. 5. Small hiatal hernia. 6. 1.9 cm right adrenal myelolipoma unchanged. No further imaging evaluation is required. 7. Moderate diverticulosis without evidence of diverticulitis. 8. Short segment mild aneurysmal dilatation of the mid abdominal aortic segment measuring 3.2 cm maximum diameter, slightly increased in size from 2019. 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 No evidence of rupture. 9. Additional non-emergent findings detailed above. Thank you for allowing us to participate in the care of your patient. Dictated and Authenticated by: Carlos Ly MD 09/13/2020 6:33 PM Central Time ([place] & [place]) [facility]ITALSimón"
== END 2020-09-13 18:57 | disposition home or self-care (01) ==
LOC: JD.ED 15:48
DX: N13.2 Hydronephrosis with renal and ureteral calculous obstruction (principal); E78.00 Pure hypercholesterolemia, unspecified; I10 Essential (primary) hypertension; N40.0 Benign prostatic hyperplasia without lower urinary tract symptoms; Z88.8 Allergy status to other drugs, medicaments and biological substances; Z88.0 Allergy status to penicillin; Z79.82 Long term (current) use of aspirin; Z79.899 Other long term (current) drug therapy
CPT/HCPCS: 36415; 74176; 80053; 81001; 85025; 86140; 96374; 96375; 99284; J1885; J2405; J7030

== ENCOUNTER 2022-01-30 01:32 | Emergency (ER) | payer MEDICARE, BC ==
[2022-01-30] MEDS ORDERED: diphenhydrAMINE 25 MG Cap PO ONE (03:56)
[2022-01-30] MEDS ORDERED: Famotidine 20 MG Tab PO ONE (03:56)
== END 2022-01-30 05:47 | disposition home or self-care (01) ==
LOC: JD.ED 01:32
DX: L29.9 Pruritus, unspecified (principal); E78.00 Pure hypercholesterolemia, unspecified; I10 Essential (primary) hypertension; Z86.16 Personal history of COVID-19; Z88.0 Allergy status to penicillin; Z88.8 Allergy status to other drugs, medicaments and biological substances; Z79.899 Other long term (current) drug therapy; Z79.82 Long term (current) use of aspirin
CPT/HCPCS: 99282; A9270; 99283